=== PATIENT | male | born 1940 | race Caucasian/White ===

== ENCOUNTER 2018-08-15 01:43 | Inpatient (IN) | payer MEDICARE, BC ==
[~2018-08-15] VITALS: Ht 182.9 cm; Wt 84.4 kg
--- NOTE | ~2018-08-15 | CON ---
[address] [address] CONSULTATION Name: ROBERTO KRAMERN Room: [address] IN .R.#: [id number] Admission: 08/15/18 Attend Phys: Elsy Tolliver MD Discharge: Date of : 38 Report #: [id number] THIS REPORT FOR: //name// CC: Eliu Tolliver REASON FOR CONSULTATION: Chronic kidney disease. HISTORY OF PRESENT ILLNESS: The patient is a 77-year-old male with a history of hypertension, chronic kidney disease stage V, followed by Dr. Hinojosa at [facility], admitted after he presented with chest pain x 2 days duration, on and off type and with some radiation to the left upper extremity. We were consulted after he was noted to have elevated creatinine. He states that he has had a fistula surgery done about 3 weeks ago in preparation for hemodialysis. His baseline creatinine is about 4.6. His hospital labs showed that his creatinine is at 5 with GFR of 11. He makes urine. No nausea, vomiting, diarrhea other than the chest pain and no shortness of breath at this time. No palpitations. PAST MEDICAL HISTORY: As mentioned above, history of hypertension, depression, chronic kidney disease stage V. HOME MEDICATIONS: Aspirin 81 mg daily, Celexa 20 mg at bedtime, metoprolol 50 mg b.i.d., nifedipine unknown dose, lansoprazole 20 mg daily. ALLERGIES: The patient is not allergic to any medications. FAMILY HISTORY: No family history of kidney disease. SOCIAL HISTORY: No smoking, alcohol or illicit drug use. REVIEW OF SYSTEMS: A 12-point review of system was done and pertinent positives are mentioned in the history of present illness. Other systems are reviewed and negative. PHYSICAL EXAMINATION: VITAL SIGNS: Has a blood pressure of 182/89 on presentation, pulse rate of 91, respiratory rate of 14, temperature of 37.1 and oxygen saturation is 97% on 3 liters nasal cannula. GENERAL: He is not in any respiratory distress. HEENT: Normocephalic and atraumatic head. [place] conjunctivae, anicteric sclerae. NECK: No JVD. Trachea midline. LUNGS: Sounds are clear to auscultation bilaterally. No wheezing. ABDOMEN: Soft and nontender. Positive bowel sounds. EXTREMITIES: Showed no edema, no clubbing. He has AV fistula in the left upper extremity with positive thrill and it is not mature [place] [address] CONSULTATION Name: ROBERTO KRAMER Room: [address] IN [facility]#: [id number] Admission: 08/15/18 Attend Phys: Elsy Tolliver MD Discharge: Date of : 38 Report #: [id number] NEUROLOGIC: Alert and oriented x 3, nonfocal. LABORATORY DATA: Laboratory values are reviewed. Has a white cell count of 13.3, hemoglobin 10.6, and platelet count of 206. Chemistry showed sodium of 141, potassium 3.5, chloride 103, carbon dioxide 23, BUN and creatinine are 44 and 5, glucose of 117. BNP of 2100. Urinalysis showed clean urine, positive protein and positive blood. IMAGING: Chest x-ray showed mild strandy basilar changes. Possible atelectasis, infiltrates or aspiration. CT of his abdomen and pelvis was reviewed, which showed evidence of acute diverticulitis of the distal sigmoid colon without evidence of pericolic inflammatory mass, abscess or perforation. There is indeterminate 1.7 x 2.7 cm low density within the subcapsular region of the right lobe of the liver. They recommended multiphasic CT or MRI for further evaluation. There is a nonobstructive left nephrolithiasis and bilateral hepatic/renal cysts. IMPRESSION: 1. Chronic kidney disease stage V, not on dialysis, but has arteriovenous fistula in preparation for dialysis, which was done 3 weeks ago. 2. Renal cysts. 3. Nephrolithiasis, nonobstructing on the left. 4. Chest pain. 5. Essential hypertension. PLAN: The patient at this time with no uremic symptoms and his labs appear to be consistent with what his baseline creatinine is. No further workup is needed. No need for initiation of dialysis at present. Follow up on cardiac workup for his chest pains. Further recommendations to follow based on hospital course. Avoid nephrotoxins. He will need close followup with his primary granite setter, Dr. Hinojosa, in terms of initiating dialysis when the time comes. We will try to avoid starting dialysis at least until his AV fistula matures. Further recommendations to follow. Thank you for the consult. By: 1223 [id number] Clay MD /nt
[~2018-08-15 01:43] MED LIST: CELEXA 20 MG TA20 MG PO; CLEOCIN HCL300 MG PO; LOPRESSOR50 PO; NORCO 5-325 TA1 EACH PO; PEPCID AC20 M1 PO; PREVACID15 MG PO; PROCARDIA XL30 MG PO; ST. JOSEPH ASPI81 M1 PO
[2018-08-15 01:49] VITALS: BP 182/89
[2018-08-15] MEDS ORDERED: FISH OIL 1,001000 M2 PO (01:56)
[2018-08-15 02:08] LABS: ABSOLUTE BASOPHILS 0.1 thou/uL (0.0-0.2); ABSOLUTE EOSINOPHILS 0.1 thou/uL (0.0-0.7); ABSOLUTE LYMPHOCYTES 2.6 thou/uL (0.8-5.3); ABSOLUTE MONOCYTES 1.1 thou/uL (0.0-1.2); ABSOLUTE NEUTROPHILS 9.5 thou/uL (1.6-8.1); BASOPHILS 0.7 %; EOSINOPHILS 0.5 %; HEMOGLOBIN 10.6 gm/dL (14.0-18.0); LYMPHOCYTES 19.2 %; MCH 29.5 pg (26.0-34.0); MCHC 33.2 g/dL (28.0-37.0); MONOCYTES 8.3 %; MPV 7.7 fl. (7.2-11.1); NUCLEATED RBCS 0 /100WBC; PLATELET COUNT* 206 thou/uL (150-400); POLYS 71.3 %; RBC 3.59 mil/uL (4.50-6.00); RDW-CV 13.1 % (10.5-14.5); WBC 13.3 thou/uL (4.0-11.0)
[2018-08-15 02:18] LABS: PROTIME 10.7 Seconds (9.20-11.50)
[2018-08-15 02:52] LABS: ANION GAP 15 mmol/L (7-16); BUN 44 mg/dL (7-18); CALCIUM 9.4 mg/dL (8.5-10.1); CHLORIDE 103 mmol/L (98-107); CO2 23 mmol/L (21-32); GLUCOSE 117 mg/dL (70-99); POTASSIUM 3.5 mmol/L (3.5-5.1); SODIUM 141 mmol/L (136-145)
[2018-08-15 03:02] LABS: ALBUMIN 3.7 g/dL (3.4-5.0); ALKALINE PHOSPHATASE 63 U/L (46-116); LIPASE 179 U/L (73-393); NT-PRO BRAIN NAT PEPTIDE 2187 pg/mL (<300); SGOT 11 U/L (15-37); SGPT 14 U/L (30-65); TOTAL BILIRUBIN 0.6 mg/dL (<0.1-1.0); TOTAL PROTEIN 7.3 g/dL (6.4-8.2); TROPONIN-I LEVEL <0.06 ng/mL (<0.06)
[2018-08-15 04:01] LABS: URINE BILIRUBIN NEGATIVE (Negative); URINE BLOOD 1+ (Negative); URINE CLARITY CLEAR; URINE COLOR YELLOW; URINE GLUCOSE-RANDOM NEGATIVE (Negative); URINE KETONES NEGATIVE (Negative); URINE LEUKOCYTES-REFLEX NEGATIVE (Negative); URINE NITRITE-REFLEX NEGATIVE (Negative); URINE PROTEIN 1+ (Negative); URINE UROBILINOGEN 0.2 E.U./dl (0.2-1.0)
[2018-08-15 04:13] LABS: BACTERIA-REFLEX None Seen /HPF (None Seen); CASTS None Seen /LPF (None Seen); MUCUS None Seen strn/LPF (None Seen); SQUAMOUS NONE SEEN /LPF (0-3); URINE RBC 3-10 Few /HPF (0-2); URINE WBC-REFLEX 0-5 Rare /HPF (0-5)
[2018-08-15 04:14] LABS: CRYSTALS None Seen /LPF (None Seen)
[2018-08-15 05:45] VITALS: BP 157/64
[2018-08-15 06:30] VITALS: BP 156/72
--- NOTE | 2018-08-15 06:30 | NUR ---
PT ADMITTED TO ROOM AT 0550. AMBULATED FROM CART TO BED WITH STEADY GAIT. LT AC A-V GRAFT NOTED, +THRILL AND BRUIT. DENIES ANY COMPLAINTS. SEE ADMISSION ASSESSMENT AND HX.
[2018-08-15] MEDS ORDERED: PEPCID20 MG PO (06:52)
[2018-08-15] MEDS ORDERED: VITAMIN D2000 UNIT PO (06:53)
[2018-08-15 08:00] VITALS: BP 184/83
--- NOTE | 2018-08-15 11:35 | EKG ---
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 : 1940 Requested By: Ceci Tilley Order Number: [id number] MD: Rodriguez Ewing Measurements Intervals [place] Rate: 89 P: 62 AL: 182 QRS: 29 QRSD: 103 T: 30 QT: 357 QTc: 435 Interpretive Statements Sinus rhythm Atrial premature complex Borderline ST depression, anterior leads No previous ECG available for comparison Electronically Signed On 08-15-2018 11:35:42 CDT by Rodriguez Ewing [email or web address] <ELECTRONICALLY SIGNED> By: Rodriguez Ewing MD, [facility] 08/15/18 1135 0146 0146 Rodriguez Ewing MD, [facility] /EPI
[2018-08-15 11:44] VITALS: BP 136/67
--- NOTE | 2018-08-15 13:51 | NUR ---
ASSUMED PT CARE AT 0730. AOX4, SBA, PT M/S. PT COMPLAINS OF ABDOMINAL PAIN. ON CLEAR LIQUID DIET, PT NPO FOR MRI. IV ACCESS INTACT. L AV GRAFT NOTED, THRILL AND BRUIT. VSS, AM ASSESSMENT CHARTED. MEDS GIVEN PER MAR. HOURLY ROUNDING OBSERVED. CALL LIGHT WITHIN REACH. WILL CONTINUE TO MONITOR.
--- NOTE | 2018-08-15 16:02 | NUR ---
Pt is A&O. Resides at home with and son. Active and independent. No DME. No hx of HH or SNF. Not currently on HD, but plans for it in the future. Goal is home at pr. No needs anticipated.
--- NOTE | 2018-08-15 17:41 | NUR ---
PT HAD LIVER MRI. STILL ON CLEAR LIQUID DIET. IV ACCESS INTACT. SBA, CALL LIGHT WITHIN REACH , HOURLY ROUNDING. VSS, ALL NEED MET AT THIS TIME WILL CONTINUE TO MONITOR.
[2018-08-15 20:00] VITALS: BP 167/74
[2018-08-16] VITALS: BP 137/52
--- NOTE | 2018-08-16 05:37 | NUR ---
ASSUMED CARE OF PT AFTER REPORT AT 1930. PT A&OX4. VSS. PHYSICAL ASSESSMENT COMPLETED AND CHARTED. PT ON RA. PT ON MEDSURG STATUS. PT UPADLIB TO RESTROOM. PT COMPLAINED OF ABDOMINAL PAIN- DR RUFFIN INFORMED WITH NEW ORDERS. MAINTAINED ON CLEAR LIQUID DIET. PT RESTED WELL ON BED. CALL LIGHT WITHIN REACH.
[2018-08-16 08:00] VITALS: BP 124/52
[2018-08-16 09:54] LABS: CALCIUM 7.9 mg/dL (8.5-10.1); CREATININE 4.5 mg/dL (0.6-1.3); POTASSIUM 3.2 mmol/L (3.5-5.1)
[2018-08-16 16:00] VITALS: BP 131/48
--- NOTE | 2018-08-16 17:52 | NUR ---
ASSUMED PT CARE AT 1000 FROM [facility]. PT A&O X4, UP AD CHRISTO, VSS, RA, PT REMAINS ON MED SURG STATUS. DENIES PAIN THIS SHIFT, REMAINS ON CLEAR LIQUID DIET. LEFT SIDED AV FISTULA NOTED, POSITIVE THRILL AND BRUIT. PT TO POSSIBLY DC HOME TOMORROW. HOURLY ROUNDING COMPLETED.
[2018-08-16 21:00] VITALS: BP 152/60
[2018-08-17] VITALS: BP 150/73
[2018-08-17 04:46] LABS: CALCIUM 7.8 mg/dL (8.5-10.1); CREATININE 4.4 mg/dL (0.6-1.3); MAGNESIUM 1.7 mg/dL (1.8-2.4)
[2018-08-17 04:47] LABS: POTASSIUM 4.2 mmol/L (3.5-5.1)
--- NOTE | 2018-08-17 05:16 | NUR ---
PT SLEPT ON AND OFF THIS SHIFT. ASSESSMENT DOCUMENTED. MEDS GIVEN PER E-APR. IV PATENT, FLUIDS INFUSING. NO REPORTS OF PAIN THIS SHIFT. PT DID REPORT NAUSEA, DR NOTIFIED, ORDERS RECIEVED. FISTULA IN LEFT ARM HAS + THRILL AND BRUIT. PT STATES HE HAD A BOWEL MOVEMENT THIS SHIFT. WILL CONTINUE WITH PLAN OF CARE.
[2018-08-17 08:00] VITALS: BP 130/61
--- NOTE | 2018-08-17 12:57 | NUR ---
ASSUMED PT CARE AT 0800. AOX4, UP AD CHRISTO. O2 SAT DROPS TO MID 80'S. RT NOTIFY. PUT ON 2L NC. PT COMPLAINS OF INTERMITTENT ABDOMINAL PAIN. LUNG SOUND COARSE. LAST BM, TODAY. AM ASSESSMENT CHARTED. MEDS GIVEN PER MAR. CALL LIGHT WITHIN REACH. WILL CONTINUE TO MONITOR
[2018-08-17 15:46] VITALS: BP 151/67
--- NOTE | 2018-08-17 17:46 | NUR ---
PT DENIES PAIN. HAD BM TODAY. TITRATE 02, STILL UP AD CHRISTO, IV ACCESS INTACT, FLUIDS RUNNING. VSS, ALL NEED MET AT THIS TIME. WILL CONTINUE TO MONITOR.
[2018-08-17 20:00] VITALS: BP 154/71
--- NOTE | 2018-08-17 20:00 | NUR ---
RECEIVED REPORT AND ASSUMED CARE OF PT, ASSESSMENT COMPLETED. PT DENIES NAUSEA OR DISCOMFORT AT THIS TIME. WILL CONT TO MONITOR AND ASSIST NEEDED.
[2018-08-18 00:15] VITALS: BP 144/71
[2018-08-18 04:00] VITALS: BP 131/61
--- NOTE | 2018-08-18 06:52 | NUR ---
SLEPT WELL TONIGHT. UP AD CHRISTO WITH STEADY GAIT. NO CHANGE IN ASSESSMENT. DENIES NAUSEA. GOALS OF REST AND SAFETY ACHIEVED. HOURLY ROUNDING OBSERVED.
[2018-08-18 08:00] VITALS: BP 134/57
[2018-08-18] MEDS ORDERED: COLACE100 MG PO (11:34)
[2018-08-18] MEDS ORDERED: FLAGYL500 M1 PO (11:34)
[2018-08-18] MEDS ORDERED: CIPRO500 M1 PO (11:34)
[2018-08-18] MEDS ORDERED: LEVSIN0.125 MG PO (11:34)
--- NOTE | 2018-08-18 11:58 | NUR ---
ASSUMED PT CARE 0800, AOX4, UP AD CHRISTO. O2 AT 90'S 2L NC. PT FOR DISCHARGE. ON LASIX. LUNGS SOUND COARSE.LAST BM 08/17/18, DENIES PAIN OR NAUSEA. ADVANCE DIET TO SOFT/FIBER. VSS, AM ASSESSMENT CHARTED. MEDS GIVEN PER MAR. WILL CONTINUE TO MONITOR.
[2018-08-18 12:21] VITALS: BP 134/57
--- NOTE | 2018-08-18 15:00 | NUR ---
DISCHARGED PLAN DISCUSSED WITH PATIENT AND . MEDICATION PACKET GIVEN. REMINDED TO FOLLOW UP WITH PCP, NEPHROLOGY. O2 CHECK, AT 90'S ON RA. IV REMOVED. LEFT THE UNIT AT 1440
== END 2018-08-18 14:40 | disposition home or self-care (01) | DRG 391 ==
LOC: M.ERS 01:43 → M.2W 05:00 → M.TBA-ER 05:00 → M.2W 05:23
PROVIDERS: Emergency Medicine; Family Medicine; Internal Medicine Nephrology; ADMIT Internal Medicine
DX: K57.32 Diverticulitis of large intestine without perforation or abscess without bleeding (principal); J96.00 Acute respiratory failure, unspecified whether with hypoxia or hypercapnia; N18.6 End stage renal disease; I12.0 Hypertensive chronic kidney disease with stage 5 chronic kidney disease or end stage renal disease; R65.10 Systemic inflammatory response syndrome (SIRS) of non-infectious origin without acute organ dysfunction; F32.9 Major depressive disorder, single episode, unspecified; N20.0 Calculus of kidney; K76.9 Liver disease, unspecified; E78.5 Hyperlipidemia, unspecified; E87.70 Fluid overload, unspecified; Z99.2 Dependence on renal dialysis; Z79.899 Other long term (current) drug therapy

== ENCOUNTER 2020-05-25 20:41 | Inpatient (IN) | payer MEDICARE ==
[~2020-05-25] VITALS: Ht 182.9 cm; Wt 72.1 kg
--- NOTE | ~2020-05-25 | CON ---
[facility] [address] [place] [address] CONSULTATION Name: ROBERTO KRAMER Room: [address] ADM IN M.R.#: [id number] Admission: 05/25/20 Attend Phys: Beatriz Galvan Discharge: Date of : 38 Report #: [id number] THIS REPORT FOR: cc: Eliu Hinojosa MD, James C. MD ~ Jose Stockton MD DATE OF SERVICE: 05/26/2020 The patient is in room #221. HISTORY OF PRESENT ILLNESS: This is an 79-year-old male patient who was evaluated by me for episode of dizziness. This patient is having these episodes from last 2-3 days and it became worse. He says when he tries to get up he has more dizziness. History is poorly defined, but there was some history of diplopia. His symptoms in general is better. He is a poor historian, but he indicates that he had these dizzy episodes in the past. He did not seek any medical attention. He does not know whether he had any workup. He gives a history that he had an MRI, but does not know whether it was the brain or something else and when was it. REVIEW OF SYSTEMS: A 14-point review of system was carried out in this patient. The patient does have a history of hypertension and renal insufficiency. He denies any prior history of stroke. He says he does not drink alcohol except very occasionally. He had some diplopia which has resolved. He does not have any tinnitus. He also denies any significant cardiac, respiratory, GI, , musculoskeletal, constitutional, dermatological, hematological, psychiatric, throat, allergic symptom associated with present symptomatology. PAST MEDICAL HISTORY: Positive for similar spells of dizziness, but history is poorly defined after that. FAMILY HISTORY: Negative for early age stroke. SOCIAL HISTORY: He does not smoke and very occasionally drinks. PHYSICAL EXAMINATION: NEUROLOGIC: Indicate he is alert, responsive, able to follow simple and complex command. He thinks his speech, concentration, fund of knowledge and memory is at his baseline. Cranial nerve examination 2-12 was unremarkable. I did not see any restrictions of the extraocular movements. There was no significant nystagmus present. He moves both sides symmetrically. His position sense is symmetrical. His reflexes are present in the lower extremities. He did [id number]-[id number] reasonably well. I did not make him walk. He does not cooperate enough to do the fundus examination, which was attempted. [place] [address] CONSULTATION Name: ROBERTO KRAMER Room: [address]#: [id number] Admission: 05/25/20 Attend Phys: Beatriz Galvan Discharge: Date of : 38 Report #: [id number] sign. GENERAL: He is moderately built individual. HEENT: His hearing and vision looks adequate. EXTREMITIES: His pulses are palpable. CARDIAC: Does not show any atrial fibrillations or any respiratory difficulty was noticed. LUNGS: No rhonchi was noted. VITAL SIGNS: Blood pressure is 124/56, respiration is 18, pulse is 61, temperature is 98.3. LABORATORY AND DIAGNOSTIC DATA: His white count is 4.8. His GFR is only 12, which I suspect is his baseline. IMPRESSION: Dizziness with some truncal ataxia, which was noticed. He is scheduled to have an MRI of the brain and MRA of the head this morning. We will see if anything is present in the posterior fossa, which can explain his symptoms and any abnormality of the basilar artery, which may be present. More likely etiology for the patient's symptoms is ENT pathology, but intracranial pathology has to be excluded because of the patient's recurrent of symptoms. It is not possible to do many testing on him because of his kidney failure and hence he will not be a candidate to do any CT angiogram and we will rely on MRA and MRI to see what it shows. Thank you very much for this referral and if you have any question, please feel free to contact me. By: 0739 0939Jose Stockton MD /edi
[~2020-05-25 20:41] MED LIST changes: +CIPRO500 M1 PO; +COLACE100 MG PO; +FISH OIL 1,001000 M2 PO; +FLAGYL500 M1 PO; +LEVSIN0.125 MG PO; +PEPCID20 MG PO; +VITAMIN D2000 UNIT PO
[2020-05-25 20:46] VITALS: BP 149/65
[2020-05-25 21:30] LABS: ABSOLUTE EOSINOPHILS 0.1 thou/uL (0.0-0.7); ABSOLUTE LYMPHOCYTES 1.4 thou/uL (0.8-5.3); ABSOLUTE MONOCYTES 0.3 thou/uL (0.0-1.2); ABSOLUTE NEUTROPHILS 2.9 thou/uL (1.6-8.1); BASOPHILS 0.7 %; EOSINOPHILS 3.1 %; HEMATOCRIT 34.4 % (42.0-52.0); HEMOGLOBIN 11.3 gm/dL (14.0-18.0); LYMPHOCYTES 29.8 %; MCH 29.4 pg (26.0-34.0); MCHC 32.9 g/dL (28.0-37.0); MCV 89.5 fL (80.0-100.0); MONOCYTES 6.4 %; NUCLEATED RBCS 0 /100WBC; PLATELET COUNT* 187 thou/uL (150-400); RBC 3.84 mil/uL (4.50-6.00); RDW-CV 14.2 % (10.5-14.5); WBC 4.8 thou/uL (4.0-11.0)
[2020-05-25 21:38] LABS: ANION GAP 13 mmol/L (7-16); BUN 47 mg/dL (7-18); CALCIUM 9.1 mg/dL (8.5-10.1); CHLORIDE 106 mmol/L (98-107); CO2 24 mmol/L (21-32); CREATININE 4.8 mg/dL (0.6-1.3); GLUCOSE 121 mg/dL (70-99); POTASSIUM 4.4 mmol/L (3.5-5.1); SODIUM 143 mmol/L (136-145)
[2020-05-25 21:40] LABS: INR 1.1; PROTIME 11.4 Seconds (9.20-11.50)
[2020-05-25 21:49] LABS: ALBUMIN 3.4 g/dL (3.4-5.0); ALKALINE PHOSPHATASE 52 U/L (46-116); MAGNESIUM 2.4 mg/dL (1.8-2.4); NT-PRO BRAIN NAT PEPTIDE 1704 pg/mL (<300); SGOT < 5 U/L (15-37); SGPT < 6 U/L (30-65); TOTAL BILIRUBIN 0.4 mg/dL (<0.1-1.0); TOTAL PROTEIN 6.9 g/dL (6.4-8.2)
[2020-05-25 23:35] VITALS: BP 117/52
[2020-05-26 00:33] VITALS: BP 135/61
[2020-05-26 04:15] VITALS: BP 124/56
[2020-05-26 08:30] VITALS: BP 119/71
--- NOTE | 2020-05-26 09:50 | EKG ---
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 : 1940 Requested By: Ceci Tilley Order Number: [id number] MD: Jimmy Pérez Measurements Intervals [place] Rate: 61 P: 60 MD: 179 QRS: -16 QRSD: 99 T: 10 QT: 445 QTc: 449 Interpretive Statements Sinus rhythm Borderline left axis deviation Compared to ECG 08/15/2018 01:46:28 Atrial premature complex(es) no longer present ST (T wave) deviation no longer present Electronically Signed On 05-26-2020 9:49:54 CDT by Jimmy Pérez [email or web address] <ELECTRONICALLY SIGNED> By: Jimmy Pérez MD, FAC 05/26/20 0949 48 48 Jimmy Pérez MD, FAC /EPI
[2020-05-26 12:29] VITALS: BP 116/71
--- NOTE | 2020-05-26 16:56 | 2DMMODE ---
[place] [address] 2 D/M-MODE ECHOCARDIOGRAM Name: ROBERTO KRAMERN Room: [address] ADM IN [facility]#: [id number] Admission: 05/25/20 Attend Phys: Abhijeet Reeves Discharge: Date of : 38 Date of Service: 05/26/20 1656 Report #: [id number] THIS REPORT FOR: cc: Eliu Hinojosa MD, James C. MD Blick, David R. MD [facility] ~ APPROVED REPORT Study performed: 05/26/2020 14:56:00 EXAM: Comprehensive 2D, Doppler, and color-flow Echocardiogram/ Bubble Study Patient Location: In-Patient Room #: 221 BSA: 1.94 HR: 61 bpm BP: 116/71 mmHg Other Information Study Quality: Good Indications CVA/TIA 2D Dimensions IVSd: 11.76 (7-11mm) LVOT Diam: 20.78 (18-24mm) LVDd: 49.72 mm PWd: 9.21 (7-11mm) Ascending Ao: 32.97 (22-36mm) LVDs: 29.89 (25-40mm) Aortic Root: 27.06 mm Volumes Left Atrial Volume (Systole) LA ESV Index: 23.00 mL/m2 Aortic Valve AoV Peak Reyes.: 1.65 m/s AO Peak Gr.: 10.85 mmHg LVOT Max P.88 mmHg AO Mean Gr.: 5.69 mmHg LVOT Mean P.31 mmHg LVOT Max V: 1.57 m/s AO V2 VTI: 36.06 cm LVOT Mean V: 0.94 m/s RODRIGO (VTI): 3.22 cm2 LVOT V1 VTI: 34.20 [place] [address] 2 D/M-MODE ECHOCARDIOGRAM Name: ROBERTO KRAMER Room: [address] IN ..#: [id number] Admission: 05/25/20 Attend Phys: Abhijeet Reeves Discharge: Date of : 38 Date of Service: 05/26/20 1656 Report #: [id number] E/A Ratio: 0.73 MV Decel. Time: 389.53 ms MV E Max Reyes.: 0.65 m/s MV PHT: 112.96 ms MVA (PHT): 1.95 cm2 TDI E/Lateral E': 16.25 E/Medial E': 10.83 Medial E' Reyes.: 0.06 m/s Lateral E' Reyes.: 0.04 m/s Pulmonary Valve PV Peak Reyes.: 1.05 m/s PV Peak Gr.: 4.37 mmHg Tricuspid Valve RAP Estimate: 5.00 mmHg TR Peak Gr.: 21.87 mmHg RVSP: 26.87 mmHg PA Pressure: 26.87 mmHg Left Ventricle The left ventricle is normal size. There is normal LV segmental wall motion. There is normal left ventricular wall thickness. Left ventricular systolic function is normal. The left ventricular ejection fraction is within the normal range. LVEF is 55-60%. Grade I - abnormal relaxation pattern. Right Ventricle The right ventricle is normal size. The right ventricular systolic function is normal. Atria The left atrium size is normal. Injection of bubbles documented no interatrial shunt. The right atrium size is normal. Aortic Valve The aortic valve is normal in structure. Moderate aortic regurgitation. There is no aortic valvular stenosis. Mitral Valve The mitral valve is normal in structure. Mild mitral regurgitation. No evidence of mitral valve stenosis. Tricuspid Valve The tricuspid valve is normal in structure. Mild tricuspid regurgitation. estimated pa pressure 35 [place] [address] 2 D/M-MODE ECHOCARDIOGRAM Name: ROBERTO KRAMER Room: [address] IN ..#: [id number] Admission: 05/25/20 Attend Phys: Abhijeet Reeves Discharge: Date of : 38 Date of Service: 05/26/20 1656 Report #: [id number] Pulmonic Valve The pulmonary valve is normal in structure. Mild pulmonic regurgitation. Great Vessels The aortic root is normal in size. IVC is normal in size and collapses >50% with inspiration. Pericardium There is no pericardial effusion. <Conclusion> LVEF is 55-60%. Moderate aortic regurgitation. Mild mitral regurgitation. Injection of bubbles documented no interatrial shunt. Mild tricuspid regurgitation. estimated pa pressure 35 mm Hg <ELECTRONICALLY SIGNED> By: Jimmy Pérez MD, FACC 05/26/201655 55 55 Jimmy Pérez MD, FACC /INF
[2020-05-26 20:00] VITALS: BP 132/63
[2020-05-27 00:13] VITALS: BP 156/65
[2020-05-27 04:02] VITALS: BP 155/62
[2020-05-27 04:40] LABS: ANION GAP 10 mmol/L (7-16); BUN 50 mg/dL (7-18); CALCIUM 9.7 mg/dL (8.5-10.1); CHLORIDE 107 mmol/L (98-107); CHOLESTEROL 111 mg/dL (<200); CO2 25 mmol/L (21-32); CREATININE 4.6 mg/dL (0.6-1.3); GLUCOSE 101 mg/dL (70-99); HDL CHOLESTEROL 34 mg/dL (>40); LDL CHOLESTEROL 71 mg/dL (<100); POTASSIUM 4.2 mmol/L (3.5-5.1); SODIUM 142 mmol/L (136-145); TC:HDL 3.3 Ratio (Not establshd); TRIGLYCERIDE 32 mg/dL (<150); VLDL 6 mg/dL (<40)
[2020-05-27 04:48] LABS: SERUM ASSESSMENT Clear
[2020-05-27 04:56] LABS: HEMATOCRIT 33.1 % (42.0-52.0); HEMOGLOBIN 10.8 gm/dL (14.0-18.0); MCH 29.2 pg (26.0-34.0); MCHC 32.7 g/dL (28.0-37.0); MCV 89.4 fL (80.0-100.0); MPV 7.5 fl. (7.2-11.1); RBC 3.7 mil/uL (4.50-6.00); RDW-CV 13.9 % (10.5-14.5); WBC 13.2 thou/uL (4.0-11.0)
[2020-05-27 08:00] VITALS: BP 160/65
[2020-05-27 09:40] LABS: URINE BILIRUBIN NEGATIVE (Negative); URINE BLOOD NEGATIVE (Negative); URINE CLARITY CLEAR; URINE COLOR YELLOW; URINE GLUCOSE-RANDOM NEGATIVE (Negative); URINE KETONES NEGATIVE (Negative); URINE LEUKOCYTES-REFLEX NEGATIVE (Negative); URINE NITRITE-REFLEX NEGATIVE (Negative); URINE PROTEIN 1+ (Negative); URINE UROBILINOGEN 0.2 E.U./dl (0.2-1.0)
[2020-05-27 10:11] VITALS: BP 160/65
[2020-05-27 12:00] VITALS: BP 138/64
== END 2020-05-27 15:38 | disposition home or self-care (01) | DRG 149 ==
LOC: M.ERS 20:41 → M.2W 22:15 → M.TBA-ER 22:15 → M.2W 23:36
PROVIDERS: Emergency Medicine; Family Medicine; ADMIT Internal Medicine; ATTEND Internal Medicine
DX: H81.10 Benign paroxysmal vertigo, unspecified ear (principal); N18.4 Chronic kidney disease, stage 4 (severe); R27.0 Ataxia, unspecified; I12.9 Hypertensive chronic kidney disease with stage 1 through stage 4 chronic kidney disease, or unspecified chronic kidney disease; K21.9 Gastro-esophageal reflux disease without esophagitis; I35.1 Nonrheumatic aortic (valve) insufficiency; Z20.822 Contact with and (suspected) exposure to COVID-19; Z79.899 Other long term (current) drug therapy; Z79.82 Long term (current) use of aspirin